=== PATIENT | female | born 1940 | race Caucasian/White ===

== ENCOUNTER 2019-04-05 10:48 | Emergency (ER) | payer MEDICARE ==
[2019-04-05] MEDS ORDERED: Take Home: Doxycycline 100 MG Tab, 4 Tab Pack PO ONE (12:05)
--- NOTE | 2019-04-05 12:11 | EDM.PDOC ---
ED HPI GENERAL MEDICAL PROBLEM - General Chief Complaint: Respiratory Problem Time Seen by Provider: 04/05/19 11:10 Source of Information: Reports: Patient History Limitations: Reports: No Limitations - History of Present Illness INITIAL COMMENTS - FREE TEXT/NARRATIVE: Pt. presents to ER with complaints of cough/chest congestion for over 1 week. She states that it is non-productive. She states that she is not overly short of breath, but coughs when she takes a deep breath. Denies any fever or chills. No chest pain. She denies any history of COPD, asthma, or other underlying lung disease. Pt. states that she has not been around any other ill contacts. Onset Date: 03/28/19 Location: Reports: Chest, Generalized Headache Pain Score (Numeric/FACES): 3 - Related Data Allergies Allergy/AdvReac Type Severity Reaction Status Date / Time aspirin Allergy Nausea and Verified 08/04/16 13:25 Vomiting Home Meds: Home Meds Brimonidine Tartrate/Timolol [Combigan Eye Drops] 5 ml OP ASDIRECTED 08/04/16 [ History] Latanoprost [Xalatan 0.005% Ophth Soln] 2.5 ml EYEBOTH BEDTIME 08/04/16 [History ] Nitrofurantoin [place]/Macrocryst [Macrobid] 100 mg PO BID #14 cap 08/04/16 [Rx] Sertraline [Zoloft] 100 mg PO DAILY 08/04/16 [History] Simvastatin [Zocor] 40 mg PO BEDTIME 08/04/16 [History] Past Medical History HEENT History: Reports: Glaucoma, Impaired Vision Cardiovascular History: Reports: High Cholesterol Genitourinary History: Reports: UTI, Recurrent Musculoskeletal History: Reports: Other (See Below) Other Musculoskeletal History: broken wrist Psychiatric History: Reports: Depression - Past Surgical History GI Surgical History: Reports: Appendectomy Female Surgical History: Reports: D&C Social & Family History - Family History Family Medical History: Noncontributory - Tobacco Use Smoking Status *Q: Never Smoker - Recreational Drug Use Recreational Drug Use: No ED ROS GENERAL - Review of Systems Review Of Systems: See Below Constitutional: Reports: No Symptoms HEENT: Reports: No Symptoms Respiratory: Reports: Cough Cardiovascular: Reports: No Symptoms Endocrine: Reports: No Symptoms GI/Abdominal: Reports: No Symptoms : Reports: No Symptoms Musculoskeletal: Reports: No Symptoms Skin: Reports: No Symptoms Neurological: Reports: No Symptoms Psychiatric: Reports: No Symptoms Hematologic/Lymphatic: Reports: No Symptoms Immunologic: Reports: No Symptoms ED EXAM, GENERAL - Physical Exam Exam: See Below Exam Limited By: No Limitations General Appearance: Alert, WD/WN, No Apparent Distress Nose: Normal Inspection, Normal Mucosa, No Blood Throat/Mouth: Normal Inspection, Normal Lips, Normal Teeth, Normal Gums, Normal Oropharynx, Normal Voice, No Airway Compromise Head: Atraumatic, Normocephalic Neck: Normal Inspection, Supple, Non-Tender, Full Range of Motion Respiratory/Chest: No Respiratory Distress, No Accessory Muscle Use, Chest Non- Tender, Decreased Breath Sounds, Rhonchi Cardiovascular: Normal Peripheral Pulses, Regular Rate, Rhythm, No Edema, No Gallop, No JVD, No Murmur, No Rub Course - Orders/Labs/Meds Meds: Medications Discontinued Medications Generic Name Dose Route Start Last Admin Trade Name Freq PRN Reason Stop Dose Admin Doxycycline Monohydrate 1 packet 04/05/19 12:05 Take Home: Doxycycline 100 Mg, 4 Tab Pack PO 04/05/19 12:06 ONETIME ONE Promethazine HCl/Codeine 1 packet 04/05/19 12:12 Take Home: Codeine/Prometh 10-6.25 Mg, 2 Pack PO 04/05/19 12:13 ONETIME ONE Departure - Departure Time of Disposition: 12:19 Disposition: Home, Self-Care 01 Clinical Impression: Bronchitis - Discharge Information Instructions: Acute Bronchitis, Adult Referrals: Windy Moralez PA-C [Primary Care Provider] - Forms: ED Department Discharge Additional Instructions: Doxycycline 100mg 1 twice daily for 10 days Phenergan with codeine 1 tsp. every 6 hours as needed for cough Drink plenty of fluids Follow-up in clinic in 2 weeks for recheck Tylenol and ibuprofen for fever/discomfort - Problem List Review Problem List Initiated/Reviewed/Updated: Yes - Assessment/Plan Plan: Doxycycline 100mg 1 twice daily for 10 days Phenergan with codeine 1 tsp. every 6 hours as needed for cough Drink plenty of fluids Follow-up in clinic in 2 weeks for recheck Tylenol and ibuprofen for fever/discomfort
--- NOTE | 2019-04-05 12:11 | CR ---
[id number] RAD/RAD Chest PA And Lateral EXAM: RAD Chest PA And Lateral INDICATION: COUGH/CHEST CONGESTION FOR OVER A WEEK. COMPARISON: None. DISCUSSION: Cardiomediastinal silhouette is normal in size and contour. No infiltrate, effusion, pneumothorax, or edema. IMPRESSION: Negative examination of the chest. Mukesh Parker MD 04/05/19 1210 Thank you for allowing us to participate in the care of your patient.
[2019-04-05] MEDS ORDERED: Take Home: Codeine/Promethazine 10-6.25 MG/5 ML Syrup 5 ML, 2 Cup Pack PO ONE (12:12)
== END 2019-04-05 12:25 | disposition home or self-care (01) ==
LOC: VM.ED 10:48
DX: J40 Bronchitis, not specified as acute or chronic (principal); F32.9 Major depressive disorder, single episode, unspecified; Z79.899 Other long term (current) drug therapy; Z88.6 Allergy status to analgesic agent
CPT/HCPCS: 71046; 99283-GF; 99284-25

== ENCOUNTER 2024-07-20 11:20 | Emergency (ER) | payer MEDICARE ==
[2024-07-20] MEDS ORDERED: Sodium Chloride 0.9% 10 ML Syringe FLUSH PRN (11:33)
[2024-07-20] MEDS: fentaNYL 100 MCG/2 ML SDV IVPUSH ONE (11:43)
[2024-07-20] MEDS: Ondansetron 4 MG/2 ML SDV IVPUSH ONE (11:43)
== END 2024-07-20 12:34 | disposition home or self-care (01) ==
LOC: VM.ED 11:20
DX: S52.571A Other intraarticular fracture of lower end of right radius, initial encounter for closed fracture (principal); E78.00 Pure hypercholesterolemia, unspecified; Z79.899 Other long term (current) drug therapy; Z88.6 Allergy status to analgesic agent; W01.0XXA Fall on same level from slipping, tripping and stumbling without subsequent striking against object, initial encounter
CPT/HCPCS: 29125; 73110; 96374; 96375; 99283; J2405; J3010

== ENCOUNTER 2024-08-02 10:56 | Emergency (ER) | payer MEDICARE ==
[2024-08-02] MEDS: Take Home: Cyclobenzaprine 10 MG Tab, 4 Tab Pack PO ONE (12:10)
== END 2024-08-02 12:30 | disposition home or self-care (01) ==
LOC: VM.ED 10:56
DX: M54.50 Low back pain, unspecified (principal); E78.00 Pure hypercholesterolemia, unspecified; Z90.49 Acquired absence of other specified parts of digestive tract; Z79.899 Other long term (current) drug therapy; Z79.82 Long term (current) use of aspirin
CPT/HCPCS: 99283; A9270-GY

== ENCOUNTER 2025-02-09 21:11 | Emergency (ER) | payer MEDICARE ==
[2025-02-09] MEDS ORDERED: Sodium Chloride 0.9% 10 ML Syringe FLUSH PRN (21:34)
[2025-02-09] MEDS ORDERED: Nitroglycerin 0.4 MG Tab.SL SL ONE ×2 (21:34→21:39)
[2025-02-09] MEDS: Ondansetron 4 MG/2 ML SDV IVPUSH ONE (21:48)
[2025-02-09 21:50] LABS: BASOPHILS PERCENT AUTO 0.2 % (0.2-1.2); EOSINOPHILS ABSOLUTE AUTO 0.1 x10^3/uL (0.0-0.5); EOSINOPHILS PERCENT AUTO 1.1 % (0.0-4.0); HEMATOCRIT 40.8 % (33.0-47.0); HEMOGLOBIN 13.9 g/dL (12.0-16.0); IMMATURE GRAN ABSOLUTE AUTO 0.01 x10^3/uL (0.00-0.07); LYMPHOCYTES ABSOLUTE AUTO 1.5 x10^3/uL (1.0-4.8); LYMPHOCYTES PERCENT AUTO 28.5 % (25.0-50.0); MEAN CORPUSCULAR HEMOGLOBIN 30.1 pg (26.0-32.0); MEAN CORPUSCULAR HGB CONC 34.1 g/dL (32.0-36.0); MEAN CORPUSCULAR VOLUME 88.3 fL (78.0-93.0); MONOCYTES ABSOLUTE AUTO 0.5 x10^3/uL (0.0-0.8); MONOCYTES PERCENT AUTO 9.7 % (2.0-11.0); NEUTROPHILS ABSOLUTE AUTO 3.2 x10^3/uL (1.8-7.7); NEUTROPHILS PERCENT AUTO 60.3 % (50.0-80.0); PLATELET COUNT,PLT 145 x10^3/uL (130-400); RED BLOOD CELL COUNT 4.62 x10^6/uL (4.00-5.50); WHITE BLOOD CELL COUNT,WBC 5.4 x10^3/uL (4.0-10.0)
[2025-02-09 22:05] LABS: PROTHROMBIN TIME 10.4 SEC (9.6-12.0)
[2025-02-09 22:16] LABS: A/G RATIO 1.17; ALANINE AMINOTRANSFERASE,ALT 31 U/L (14-59); ALBUMIN 3.4 g/dL (3.4-5.0); ALKALINE PHOSPHATASE 140 U/L (46-116); ASPARTATE AMNIOTRANSFERASE,AST 18 U/L (15-37); BILIRUBIN TOTAL 0.6 mg/dL (0.2-1.0); BLOOD UREA NITROGEN,BUN 27 mg/dL (7-18); CALCIUM 8.8 mg/dL (8.5-10.1); CARBON DIOXIDE,CO2 30 mmol/L (21-32); CHLORIDE,CL 105 mmol/L (98-107); CREATININE 0.9 mg/dL (0.55-1.02); EST CRCL DRUG DOSING (CG) 33.86 mL/min; GLUCOSE RANDOM 138 mg/dL (70-99); MAGNESIUM 1.8 mg/dL (1.8-2.4); POTASSIUM,K 3.7 mmol/L (3.5-5.1); PRO B-TYPE NATRIUR PEPT,BNPPRO 230 pg/mL (<=450); PROTEIN TOTAL,TP 6.3 g/dL (6.4-8.2); SODIUM,NA 142 mmol/L (136-145)
[2025-02-09 22:17] LABS: ANION GAP 10.7 mmol/L (5-15); C-REACTIVE PROTEIN < 0.50 mg/dL (<=0.50); ESTIMATED GFR 62 mL/min (>=60)
[2025-02-09] MEDS: Take Home: Ondansetron 4 MG Tab.DIS, 5 Tab Pack PO ONE (22:34)
== END 2025-02-09 22:43 | disposition home or self-care (01) ==
LOC: VM.ED 21:11
DX: R11.2 Nausea with vomiting, unspecified (principal); M54.6 Pain in thoracic spine; E78.00 Pure hypercholesterolemia, unspecified; Z88.6 Allergy status to analgesic agent; Z79.899 Other long term (current) drug therapy
CPT/HCPCS: 71045; 80053; 83735; 83880; 84484; 85025; 85610; 86140; 93005; 93010; 96374; 99284; 99284-25; J2405; Q0162